=== PATIENT | female | born 1970 | race Asian ===

== ENCOUNTER → 2017-01-13 | Outpatient (CLI) | payer BC | LOC: CIMAGING 14:55 | PROVIDERS: ATTEND Internal Medicine | DX: R93.8 Abnormal findings on diagnostic imaging of other specified body structures (principal); N83.202 Unspecified ovarian cyst, left side; N92.6 Irregular menstruation, unspecified | CPT/HCPCS: 76856-PO ==

== ENCOUNTER → 2017-08-04 | Outpatient (CLI) | payer BC | LOC: EDBD → BRMIMAGING 10:20 | PROVIDERS: ATTEND Internal Medicine Endocrinology, Diabetes & Metabolism | DX: Z13.820 Encounter for screening for osteoporosis (principal); M85.80 Other specified disorders of bone density and structure, unspecified site; E21.3 Hyperparathyroidism, unspecified; E04.1 Nontoxic single thyroid nodule; N95.9 Unspecified menopausal and perimenopausal disorder ==